=== PATIENT | female | born 1995 | race Caucasian/White ===

== ENCOUNTER 2018-06-22 18:04 | Emergency (ER) | payer OTHER ==
[~2018-06-22] VITALS: Ht 157.5 cm; Wt 49.4 kg
[~2018-06-22 18:04] MED LIST: ACCUNEB SO1.25 MG/1 INH; ACETAMINOPHEN-1 EAC1 PO; OMEPRAZOLE40 MG
[2018-06-22] MEDS ORDERED: ZOLOFT25 MG PO (18:13)
[2018-06-22] MEDS ORDERED: BIRTH CONTROL PO (18:14)
[2018-06-22 18:43] LABS: ABSOLUTE EOSINOPHILS 0.5 thou/uL (0.0-0.7); ABSOLUTE LYMPHOCYTES 2.7 thou/uL (0.8-5.3); ABSOLUTE MONOCYTES 0.7 thou/uL (0.0-1.2); ABSOLUTE NEUTROPHILS 4.4 thou/uL (1.6-8.1); BASOPHILS 0.5 %; HEMATOCRIT 37.9 % (37.0-47.0); HEMOGLOBIN 12.8 gm/dL (12.0-15.0); LYMPHOCYTES 32.2 %; MCHC 33.8 g/dL (28.0-37.0); MCV 88.6 fL (80.0-100.0); MONOCYTES 8.5 %; MPV 7.4 fl. (7.2-11.1); NUCLEATED RBCS 0 /100WBC; PLATELET COUNT* 261 thou/uL (150-400); POLYS 52.8 %; RBC 4.27 mil/uL (4.20-5.00); RDW-CV 13.3 % (10.5-14.5); WBC 8.4 thou/uL (4.0-11.0)
[2018-06-22 18:52] LABS: ANION GAP 8 mmol/L (7-16); BUN 14 mg/dL (7-18); CALCIUM 8.8 mg/dL (8.5-10.1); CHLORIDE 104 mmol/L (98-107); CO2 28 mmol/L (21-32); GLUCOSE 95 mg/dL (70-99); POTASSIUM 3.3 mmol/L (3.5-5.1); SODIUM 140 mmol/L (136-145)
[2018-06-22 18:59] LABS: URINE BILIRUBIN NEGATIVE (Negative); URINE BLOOD TRACE (Negative); URINE CLARITY CLEAR; URINE COLOR YELLOW; URINE GLUCOSE-RANDOM NEGATIVE (Negative); URINE KETONES NEGATIVE (Negative); URINE LEUKOCYTES-REFLEX NEGATIVE (Negative); URINE NITRITE-REFLEX NEGATIVE (Negative); URINE PROTEIN NEGATIVE (Negative); URINE SPECIFIC GRAVITY >= 1.030 (1.005-1.030); URINE UROBILINOGEN 0.2 E.U./dl (0.2-1.0)
[2018-06-22 19:01] LABS: ALBUMIN 3.7 g/dL (3.4-5.0); ALKALINE PHOSPHATASE 58 U/L (46-116); SGOT 14 U/L (15-37); SGPT 23 U/L (30-65); TOTAL BILIRUBIN 0.3 mg/dL (<0.1-1.0); TOTAL PROTEIN 6.5 g/dL (6.4-8.2); TROPONIN-I LEVEL <0.06 ng/mL (<0.06)
[2018-06-22] MEDS ORDERED: NAPROSYN500 MG PO (21:13)
[2018-06-22] MEDS ORDERED: ACETAMINOPHEN-1 EAC1 PO (21:13)
[2018-06-22] MEDS ORDERED: ROBAXIN 750 MG750 M1 PO (21:13)
[2018-06-22 21:32] VITALS: BP 106/68
--- NOTE | 2018-06-23 10:23 | EKG ---
[place] [address] ELECTROCARDIOGRAM REPORT Name: GRACE URBINA Room: [facility]#: [id number] Admission: 06/22/18 Attend Phys: Discharge: 06/22/18 Date of : [birth year] Report #: [id number] THIS REPORT FOR: //name// [facility] ED Test Date: 2018-06-22 Test Time: 18:10:18 Pat Name: GRACE URBINA Department: Room: Gender: F Maintenance Coordinator: REYNOLD : 1995 Requested By: Summer Wells Order Number: [id number] MD: Cole Whitley Measurements Intervals [place] Rate: 76 P: 60 [place]: 130 QRS: 76 QRSD: 85 T: 25 QT: 386 QTc: 435 Interpretive Statements Sinus rhythm RSR' in V1 or V2, right VCD or RVH Borderline T abnormalities, anterior leads Baseline wander in lead(s) V1 Compared to ECG 08/15/2015 17:30:13 RSR' in V1 or V2 now present Sinus bradycardia no longer present Electronically Signed On 06-23-2018 10:23:31 CLIENT EXPERIENCE ADMINISTRATOR by Cole Whitley [email or web address] <ELECTRONICALLY SIGNED> By: Cole Whitley MD, FACC 06/23/18 1023 1810 1810 Cole Whitley MD, FACC /EPI
== END 2018-06-22 21:33 | disposition home or self-care (01) ==
LOC: M.ERS 18:04
PROVIDERS: Physician Assistant
DX: R07.89 Other chest pain (principal); R10.11 Right upper quadrant pain

== ENCOUNTER 2018-06-25 15:18 | Emergency (ER) | payer OTHER ==
[~2018-06-25] VITALS: Ht 157.5 cm; Wt 49.4 kg
[~2018-06-25 15:18] MED LIST changes: +BIRTH CONTROL PO; +NAPROSYN500 MG PO; +ROBAXIN 750 MG750 M1 PO; +ZOLOFT25 MG PO
[2018-06-25 16:18] LABS: ABSOLUTE BASOPHILS 0.1 thou/uL (0.0-0.2); ABSOLUTE EOSINOPHILS 0.3 thou/uL (0.0-0.7); ABSOLUTE MONOCYTES 0.7 thou/uL (0.0-1.2); ABSOLUTE NEUTROPHILS 6.6 thou/uL (1.6-8.1); BASOPHILS 0.7 %; EOSINOPHILS 2.7 %; HEMOGLOBIN 13.2 gm/dL (12.0-15.0); LYMPHOCYTES 21.1 %; MCH 30.1 pg (26.0-34.0); MCHC 34.8 g/dL (28.0-37.0); MCV 86.5 fL (80.0-100.0); MONOCYTES 7.7 %; MPV 7.5 fl. (7.2-11.1); NUCLEATED RBCS 0 /100WBC; PLATELET COUNT* 234 thou/uL (150-400); POLYS 67.8 %; RBC 4.39 mil/uL (4.20-5.00); RDW-CV 13.2 % (10.5-14.5); WBC 9.7 thou/uL (4.0-11.0)
[2018-06-25 16:27] LABS: ANION GAP 10 mmol/L (7-16); BUN 12 mg/dL (7-18); CALCIUM 8.9 mg/dL (8.5-10.1); CHLORIDE 103 mmol/L (98-107); CO2 25 mmol/L (21-32); CREATININE 0.8 mg/dL (0.6-1.3); GLUCOSE 90 mg/dL (70-99); POTASSIUM 3.5 mmol/L (3.5-5.1); SODIUM 138 mmol/L (136-145)
[2018-06-25 16:36] LABS: ALKALINE PHOSPHATASE 49 U/L (46-116); LIPASE 103 U/L (73-393); SGOT 15 U/L (15-37); SGPT 25 U/L (30-65); TOTAL BILIRUBIN 0.5 mg/dL (<0.1-1.0); TOTAL PROTEIN 6.7 g/dL (6.4-8.2); TROPONIN-I LEVEL <0.06 ng/mL (<0.06)
[2018-06-25 16:45] LABS: URINE BILIRUBIN NEGATIVE (Negative); URINE BLOOD NEGATIVE (Negative); URINE CLARITY CLEAR; URINE COLOR YELLOW; URINE GLUCOSE-RANDOM NEGATIVE (Negative); URINE KETONES 1+ (Negative); URINE LEUKOCYTES-REFLEX NEGATIVE (Negative); URINE NITRITE-REFLEX NEGATIVE (Negative); URINE PROTEIN NEGATIVE (Negative); URINE SPECIFIC GRAVITY 1.015 (1.005-1.030); URINE UROBILINOGEN 0.2 E.U./dl (0.2-1.0)
[2018-06-25 16:55] LABS: AMP/METHAMP Negative (Negative); BARBITURATES Negative (Negative); BENZODIAZEPINES Negative (Negative); COCAINE Negative (Negative); METHADONE Negative (Negative); OPIATES POSITIVE (Negative); PCP Negative (Negative); THC POSITIVE (Negative)
[2018-06-25] MEDS ORDERED: ONDANSETRON HCL4 M2 PO (17:57)
[2018-06-25] MEDS ORDERED: CARAFATE1 GM/10 ML PO (17:57)
[2018-06-25] MEDS ORDERED: NORCO 5-325 TA1 EACH PO (17:57)
[2018-06-25 18:10] VITALS: BP 101/59
--- NOTE | 2018-06-26 10:53 | EKG ---
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[facility] : 1995 Requested By: Jo Ann Kilgore Order Number: [id number] MD: Cole Whitley Measurements Intervals [place] Rate: 81 P: 64 [place]: 128 QRS: 77 QRSD: 87 T: 13 QT: 372 QTc: 432 Interpretive Statements Sinus arrhythmia Borderline T wave abnormalities Baseline wander in lead(s) V1,V3 Compared to ECG 06/22/2018 18:10:18 T-wave abnormality still present Electronically Signed On 06-26-2018 10:52:58 TYPEWRITER MECHANIC by Cole Whitley [email or web address] <ELECTRONICALLY SIGNED> By: Cole Whitley MD, [facility] 06/26/18 1052 1524 1524 Cole Whitley MD, [facility] /EPI
== END 2018-06-25 18:10 | disposition home or self-care (01) ==
LOC: M.ERS 15:18
PROVIDERS: Nurse Practitioner Family
DX: R10.11 Right upper quadrant pain (principal); J84.10 Pulmonary fibrosis, unspecified; R11.2 Nausea with vomiting, unspecified; Z79.899 Other long term (current) drug therapy

== ENCOUNTER 2019-06-09 06:41 | Emergency (ER) | payer OTHER ==
[~2019-06-09] VITALS: Ht 157.5 cm; Wt 49.0 kg
--- NOTE | ~2019-06-09 | EKG ---
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
[~2019-06-09 06:41] MED LIST changes: +CARAFATE1 GM/10 ML PO; +NORCO 5-325 TA1 EACH PO; +ONDANSETRON HCL4 M2 PO
[2019-06-09 07:57] LABS: ABSOLUTE EOSINOPHILS 0.6 thou/uL (0.0-0.7); ABSOLUTE LYMPHOCYTES 1.7 thou/uL (0.8-5.3); ABSOLUTE MONOCYTES 0.5 thou/uL (0.0-1.2); ABSOLUTE NEUTROPHILS 4.4 thou/uL (1.6-8.1); BASOPHILS 0.7 %; HEMATOCRIT 39.6 % (37.0-47.0); HEMOGLOBIN 13.6 gm/dL (12.0-15.0); LYMPHOCYTES 23.9 %; MCH 30.1 pg (26.0-34.0); MCHC 34.4 g/dL (28.0-37.0); MCV 87.5 fL (80.0-100.0); MONOCYTES 6.4 %; MPV 7.3 fl. (7.2-11.1); NUCLEATED RBCS 0 /100WBC; PLATELET COUNT* 257 thou/uL (150-400); RBC 4.52 mil/uL (4.20-5.00); RDW-CV 13.1 % (10.5-14.5); WBC 7.3 thou/uL (4.0-11.0)
[2019-06-09 08:01] LABS: URINE BILIRUBIN NEGATIVE (Negative); URINE BLOOD NEGATIVE (Negative); URINE CLARITY CLEAR; URINE COLOR YELLOW; URINE GLUCOSE-RANDOM NEGATIVE (Negative); URINE KETONES NEGATIVE (Negative); URINE LEUKOCYTES-REFLEX NEGATIVE (Negative); URINE NITRITE-REFLEX NEGATIVE (Negative); URINE PROTEIN NEGATIVE (Negative); URINE SPECIFIC GRAVITY <= 1.005 (1.005-1.030); URINE UROBILINOGEN 0.2 E.U./dl (0.2-1.0)
[2019-06-09 08:04] LABS: CALCIUM 8.5 mg/dL (8.5-10.1); CREATININE 0.8 mg/dL (0.6-1.3); POTASSIUM 3.7 mmol/L (3.5-5.1)
[2019-06-09 08:08] LABS: ALBUMIN 3.6 g/dL (3.4-5.0); TOTAL BILIRUBIN 0.2 mg/dL (<0.1-1.0); TOTAL PROTEIN 6.9 g/dL (6.4-8.2)
[2019-06-09 08:51] VITALS: BP 105/64
--- NOTE | 2019-06-09 09:35 | EKG ---
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[place] : 1995 Requested By: Cesar Barillas Order Number: [id number] MD: Miguel Choi Measurements Intervals [place] Rate: 73 P: 60 [place]: 139 QRS: 72 QRSD: 84 T: 12 QT: 381 QTc: 420 Interpretive Statements Sinus rhythm with sinus arrhythmia Compared to ECG 06/25/2018 15:24:09 T-wave abnormality no longer present Electronically Signed On 06-09-2019 9:35:28 AUXILIARY EQUIPMENT OPERATOR by Miguel Choi [email or web address] <ELECTRONICALLY SIGNED> By: Miguel Choi MD, [facility] 06/09/19 0935 0649 Miguel Choi MD, FACC /EPI
== END 2019-06-09 08:52 | disposition home or self-care (01) ==
LOC: M.ERS 06:41
PROVIDERS: Family Medicine
DX: R10.84 Generalized abdominal pain (principal)

== ENCOUNTER 2019-12-16 21:00 | Emergency (ER) | payer OTHER ==
[~2019-12-16] VITALS: Ht 157.5 cm; Wt 49.9 kg
[2019-12-16] MEDS ORDERED: PROTONIX 20 MG20 M1 PO (21:18)
[2019-12-16 22:06] LABS: ABSOLUTE BASOPHILS 0.1 thou/uL (0.0-0.2); ABSOLUTE EOSINOPHILS 0.4 thou/uL (0.0-0.7); ABSOLUTE LYMPHOCYTES 2.9 thou/uL (0.8-5.3); ABSOLUTE MONOCYTES 0.6 thou/uL (0.0-1.2); ABSOLUTE NEUTROPHILS 5.7 thou/uL (1.6-8.1); BASOPHILS 0.6 %; EOSINOPHILS 3.7 %; HEMATOCRIT 38.6 % (37.0-47.0); HEMOGLOBIN 13.4 gm/dL (12.0-15.0); LYMPHOCYTES 29.8 %; MCHC 34.7 g/dL (28.0-37.0); MCV 86.6 fL (80.0-100.0); MONOCYTES 6.5 %; MPV 7.6 fl. (7.2-11.1); NUCLEATED RBCS 0 /100WBC; PLATELET COUNT* 260 thou/uL (150-400); POLYS 59.4 %; RBC 4.46 mil/uL (4.20-5.00); RDW-CV 12.7 % (10.5-14.5); WBC 9.6 thou/uL (4.0-11.0)
[2019-12-16 22:24] LABS: CALCIUM 8.2 mg/dL (8.5-10.1); CREATININE 0.9 mg/dL (0.6-1.3); POTASSIUM 3.6 mmol/L (3.5-5.1)
[2019-12-16 22:28] LABS: ALBUMIN 3.6 g/dL (3.4-5.0); TOTAL BILIRUBIN 0.3 mg/dL (<0.1-1.0); TOTAL PROTEIN 7.3 g/dL (6.4-8.2)
[2019-12-16 22:32] LABS: URINE BILIRUBIN NEGATIVE (Negative); URINE BLOOD NEGATIVE (Negative); URINE CLARITY SL CLOUDY; URINE COLOR YELLOW; URINE GLUCOSE-RANDOM NEGATIVE (Negative); URINE KETONES NEGATIVE (Negative); URINE LEUKOCYTES-REFLEX NEGATIVE (Negative); URINE NITRITE-REFLEX NEGATIVE (Negative); URINE PROTEIN NEGATIVE (Negative); URINE SPECIFIC GRAVITY 1.015 (1.005-1.030); URINE UROBILINOGEN 0.2 E.U./dl (0.2-1.0)
[2019-12-16 22:38] LABS: AMORPHOUS URATES Few /LPF (None Seen); BACTERIA-REFLEX >30 Many /HPF (None Seen); CASTS None Seen /LPF (None Seen); CRYSTALS None Seen /LPF (None Seen); SQUAMOUS >10 Many /LPF (0-3); URINE RBC 0-2 Rare /HPF (0-2); URINE WBC-REFLEX 0-5 Rare /HPF (0-5)
[2019-12-17] MEDS ORDERED: MAGNESIUM CITR296 ML PO (00:23)
[2019-12-17] MEDS ORDERED: BENTYL 20 MG TA20 M1 PO (00:23)
[2019-12-17] MEDS ORDERED: KEFLEX500 M1 PO (00:23)
[2019-12-17 01:02] VITALS: BP 142/84
== END 2019-12-17 01:03 | disposition home or self-care (01) ==
LOC: M.ERS 21:00
PROVIDERS: Emergency Medicine Emergency Medical Services
DX: K59.00 Constipation, unspecified (principal); N39.0 Urinary tract infection, site not specified

== ENCOUNTER 2020-10-30 23:44 | Emergency (ER) | payer OTHER ==
[~2020-10-30] VITALS: Ht 157.5 cm; Wt 52.2 kg
[~2020-10-30 23:44] MED LIST changes: +BENTYL 20 MG TA20 M1 PO; +KEFLEX500 M1 PO; +MAGNESIUM CITR296 ML PO; +PROTONIX 20 MG20 M1 PO
[2020-10-30] MEDS ORDERED: BCP (23:53)
[2020-10-30] MEDS ORDERED: OMEPRAZOLE (23:53)
[2020-10-31] MEDS ORDERED: XANAX 1 MG TABLE1 MG PO (01:42)
[2020-10-31 01:55] VITALS: BP 108/63
== END 2020-10-31 01:55 | disposition home or self-care (01) ==
LOC: M.ERS 23:44
DX: F41.9 Anxiety disorder, unspecified (principal)